=== PATIENT | male | born 1995 | race African-American/Black ===

== ENCOUNTER 2018-09-26 19:26 | Emergency (ER) | payer OTHER ==
[~2018-09-26] VITALS: Ht 177.8 cm; Wt 86.2 kg
[~2018-09-26 19:26] MED LIST: NORCO 5-325 TA1 EAC1 PO
[2018-09-26 19:53] LABS: ABSOLUTE LYMPHOCYTES 1.8 thou/uL (0.8-5.3); ABSOLUTE MONOCYTES 0.4 thou/uL (0.0-1.2); ABSOLUTE NEUTROPHILS 4.2 thou/uL (1.6-8.1); BASOPHILS 0.7 %; EOSINOPHILS 0.4 %; HEMATOCRIT 45.2 % (42.0-52.0); HEMOGLOBIN 15.5 gm/dL (14.0-18.0); LYMPHOCYTES 27.8 %; MCH 29.8 pg (26.0-34.0); MCHC 34.3 g/dL (28.0-37.0); MONOCYTES 6.2 %; MPV 8.5 fl. (7.2-11.1); NUCLEATED RBCS 0 /100WBC; PLATELET COUNT* 228 thou/uL (150-400); POLYS 64.9 %; RDW-CV 12.5 % (10.5-14.5); WBC 6.5 thou/uL (4.0-11.0)
[2018-09-26 20:02] LABS: ANION GAP 9 mmol/L (7-16); BUN 14 mg/dL (7-18); CALCIUM 9.4 mg/dL (8.5-10.1); CHLORIDE 105 mmol/L (98-107); CO2 27 mmol/L (21-32); CREATININE 1.3 mg/dL (0.6-1.3); GLUCOSE 63 mg/dL (70-99); POTASSIUM 3.5 mmol/L (3.5-5.1); SODIUM 141 mmol/L (136-145)
[2018-09-26 20:16] LABS: ALBUMIN 4.1 g/dL (3.4-5.0); ALKALINE PHOSPHATASE 57 U/L (46-116); SGOT 52 U/L (15-37); SGPT 46 U/L (30-65); TOTAL BILIRUBIN 1.2 mg/dL (<0.1-1.0); TOTAL PROTEIN 7.2 g/dL (6.4-8.2); TROPONIN-I LEVEL <0.06 ng/mL (<0.06)
[2018-09-26 20:35] LABS: BE -0.4 mmol/L (-2 to +3); PCO2 39.3 mmHg (35.0-45.0); pH 7.406 (7.340-7.450)
[2018-09-26 20:37] LABS: PO2 131.2 mmHg (75.0-100.0)
[2018-09-26 21:07] VITALS: BP 122/64
--- NOTE | 2018-09-27 13:18 | EKG ---
[place] [address] ELECTROCARDIOGRAM REPORT Name: MIC CHAVEZ [facility] [id number] Admission: 09/26/18 Attend Phys: Discharge: 09/26/18 Date of : [birth year] Report #: [id number] THIS REPORT FOR: //name// [facility] ED Test Date: 2018-09-26 Test Time: 19:29:33 Pat Name: MIC CHAVEZ Department: Room: Gender: M Aircraft [employer]er: SAMIR : 1995 Requested By: Tricia Wilcox Order Number: [id number] MD: Pablo Crockett Measurements Intervals Oto Rate: 71 P: 78 RI: 176 QRS: 79 QRSD: 94 T: 48 QT: 385 QTc: 419 Interpretive Statements Sinus rhythm ST elev, probable normal early repol pattern No previous ECG available for comparison Electronically Signed On 09-27-2018 13:18:18 CDT by Pablo Crockett [email or web address] <ELECTRONICALLY SIGNED> By: Pablo Crockett MD, [facility] 09/27/18 1318 1929 28 Pablo Crockett MD, FACC /EPI
== END 2018-09-26 21:07 | disposition home or self-care (01) ==
LOC: M.ERS 19:26
PROVIDERS: Emergency Medicine
DX: R74.8 Abnormal levels of other serum enzymes (principal); R63.8 Other symptoms and signs concerning food and fluid intake